=== PATIENT | male | born 1960 | race Two or more races ===

== ENCOUNTER 2024-07-23 11:02 | Emergency (ER) | payer OTHER ==
[~2024-07-23] VITALS: Ht 185.4 cm; Wt 112.0 kg
[2024-07-23] MEDS ORDERED: BARIUM SULFATE 450 ML ORAL.SUSP PO ONE (12:46)
[2024-07-23 13:13] LABS: PH,URINE 5.5 (5.0-8.0); URINE APPEARANCE Clear; URINE BILIRRUBIN Negative (NEGATIVE); URINE BLOOD Trace; URINE COLOR Dark Yellow; URINE GLUCOSE Negative (NEGATIVE); URINE KETONE 15 (NEGATIVE); URINE LEUKOCYTE Small; URINE NITRATE Negative; URINE UROBILINOGEN 0.2 E.U./dl
[2024-07-23 13:13] LABS: HEMATOCRIT 44.3 % (39.0-48.0); HEMOGLOBIN 15.2 g/dL (13-16.00); MEAN CELL VOLUME 89.5 fL (80.0-100.00); MEAN CORPUSCULAR HEMOGLOBIN 30.8 pg (27.00-32.0); MEAN CORPUSCULAR HGB CONC 34.4 g/dl (32.0-36.0); PLATELET COUNT 167 K/uL (150-450); RED BLOOD COUNT 4.95 M/uL (4.00-6.00); RED CELL DISTRIBUTION WIDTH 13.6 % (11.5-14.5)
[2024-07-23 13:18] LABS: URINE BACTERIA 61.1 uL (0.0-1933); URINE RBC 46.4 uL (0.0-20.8); URINE WBC 6.8 uL (0.0-23.2)
[2024-07-23 13:34] LABS: URINE CAST 0.14 uL (0.0-1.40); URINE PROTEIN 100 (NEGATIVE)
[2024-07-23 13:47] LABS: CALCIUM 8.8 mg/dL (8.5-10.1); CREATININE SERUM 1.03 mg/dL (0.70-1.30); GFR 73.17
[2024-07-23 13:48] LABS: POTASSIUM 4.21 mEq/L (3.5-5.1)
[2024-07-23] MEDS ORDERED: PEPCID AC20 MG PO (18:12)
[2024-07-23] MEDS ORDERED: PROBIOTIC1 EAC2 PO (18:12)
[2024-07-23] MEDS ORDERED: ZOFRAN8 MG PO (18:12)
[2024-07-23] MEDS ORDERED: CIPRO500 MG PO (18:12)
[2024-07-23] MEDS ORDERED: METRONIDAZOLE500 MG PO (18:12)
[2024-07-23] MEDS ORDERED: DICY20TA PO (18:13)
[2024-07-23] MEDS ORDERED: METROnidazole 500 MG TABLET PO ONE ×2 (19:11→19:15)
[2024-07-23] MEDS ORDERED: KETOROLAC TROMETHAMINE 30 MG VIAL ONE (19:11)
[2024-07-23] MEDS ORDERED: FAMOTIDINE/PF 20 MG/2 ML VIAL ONE (19:11)
[2024-07-23] MEDS ORDERED: KETOROLAC TROMETHAMINE 30 MG VIAL IV ONE (19:15)
[2024-07-23] MEDS ORDERED: FAMOTIDINE/PF 20 MG/2 ML VIAL IV PUSH ONE (19:15)
[2024-07-23] MEDS ORDERED: METRONIDAZOLE/SODIUM CHLORIDE 500 MG/100 ML PIGGYBACK IV ONE ×2 (19:23→19:45)
== END 2024-07-23 18:30 | disposition home or self-care (01) ==
LOC: ER 11:05
PROVIDERS: Emergency Medicine
DX: K57.32 Diverticulitis of large intestine without perforation or abscess without bleeding (principal); R10.9 Unspecified abdominal pain; K57.30 Diverticulosis of large intestine without perforation or abscess without bleeding; K76.0 Fatty (change of) liver, not elsewhere classified